=== PATIENT | female | born 1960 | race Caucasian/White ===

== ENCOUNTER 2017-08-08 19:10 | Emergency (ER) | payer SELFPAY ==
[~2017-08-08] VITALS: Ht 170.2 cm; Wt 59.0 kg
[~2017-08-08 19:10] MED LIST: BACI120O TP; DULO20CA30 PO
[2017-08-08] MEDS ORDERED: HYDR-3112 PO (19:28)
[2017-08-08] MEDS ORDERED: HALO0.5T PO (19:28)
[2017-08-08] MEDS ORDERED: DIVA250T25 PO (19:28)
[2017-08-08 20:00] LABS: BASOPHILS # (AUTO) 0.02 K/uL (0.00-0.20); BASOPHILS % (AUTO) 0.3 % (0.0-2.0); EOSINOPHILS # (AUTO) 0.19 K/uL (0.00-0.70); EOSINOPHILS % (AUTO) 2.47 % (1.0-6.0); HEMATOCRIT 39.5 % (36-46); HEMOGLOBIN 13.7 g/dL (12.0-16.0); LYMPHOCYTES % (AUTO) 25.7 % (22.0-44.0); MEAN CORPUSCULAR HEMOGLOBIN 30.3 pg (26.0-34.0); MEAN CORPUSCULAR HGB CONC 34.8 G/dL (31.0-37.0); MEAN CORPUSCULAR VOLUME 87 fL (80-100); MONOCYTES # (AUTO) 0.6 K/uL (0.1-1.0); MONOCYTES % (AUTO) 8.2 % (2.0-9.0); NEUTROPHILS # (AUTO) 4.9 K/uL (1.8-7.7); NEUTROPHILS % (AUTO) 63.4 % (40.0-70.0); PLATELET COUNT (AUTO) 298 K/uL (150-450); RED BLOOD CELL COUNT(AUTO) 4.53 MIL/uL (4.00-5.20); RED CELL DISTRIBUTION WIDTH 13.4 % (11.5-14.5); WHITE BLOOD COUNT (AUTO) 7.8 K/uL (4.5-11.0)
[2017-08-08 20:20] LABS: ANION GAP 8 mmol/L (8-16); CALCIUM, TOTAL 8.3 mg/dL (8.8-10.5); CARBON DIOXIDE 28 mmol/L (22-29); CHLORIDE 105 mmol/L (98-107); CREATININE 0.75 mg/dL (0.60-1.30); GLOMERULAR FILTR. RATE CALC > 60 mL/min (>60); POTASSIUM 3.8 mmol/L (3.5-5.1); SODIUM SERUM 141 mmol/L (136-145); UREA NITROGEN, BLOOD 14 mg/dL (7-18)
[2017-08-08 20:28] LABS: ALANINE AMINOTRANSFERASE 10 U/L (12-78); ALBUMIN 3.2 g/dL (3.4-5.0); ASPARTATE AMINOTRANSFERASE 10 U/L (15-37); BILIRUBIN,TOTAL 0.2 mg/dL (0.1-1.0); TOTAL PROTEIN, SERUM 6.7 g/dL (6.4-8.2)
[2017-08-08] MEDS ORDERED: LORazepam 2 MG TABLET PO ONE (21:15)
[2017-08-08 22:58] VITALS: BP 103/76
== END 2017-08-08 23:02 | disposition home or self-care (01) ==
LOC: EMS 19:12
DX: F32.9 Major depressive disorder, single episode, unspecified (principal); F41.9 Anxiety disorder, unspecified; I10 Essential (primary) hypertension
CPT/HCPCS: 36415; 80053; 80307; 85025; 99284; G0480

== ENCOUNTER 2017-08-10 14:20 | Emergency (ER) | payer SELFPAY ==
[~2017-08-10] VITALS: Ht 170.2 cm; Wt 59.0 kg
[~2017-08-10 14:20] MED LIST changes: -BACI120O TP; +HALO0.5T PO; +HYDR-3112 PO
[2017-08-10 15:39] LABS: BASOPHILS # (AUTO) 0.05 K/uL (0.00-0.20); BASOPHILS % (AUTO) 0.6 % (0.0-2.0); EOSINOPHILS # (AUTO) 0.15 K/uL (0.00-0.70); HEMATOCRIT 39.5 % (36-46); HEMOGLOBIN 13.2 g/dL (12.0-16.0); LYMPHOCYTES # (AUTO) 1.5 K/uL (1.0-4.8); LYMPHOCYTES % (AUTO) 18.3 % (22.0-44.0); MEAN CORPUSCULAR HEMOGLOBIN 29.8 pg (26.0-34.0); MEAN CORPUSCULAR HGB CONC 33.4 G/dL (31.0-37.0); MEAN CORPUSCULAR VOLUME 89 fL (80-100); MONOCYTES # (AUTO) 0.7 K/uL (0.1-1.0); MONOCYTES % (AUTO) 8.2 % (2.0-9.0); NEUTROPHILS # (AUTO) 5.9 K/uL (1.8-7.7); NEUTROPHILS % (AUTO) 71.1 % (40.0-70.0); PLATELET COUNT (AUTO) 282 K/uL (150-450); RED BLOOD CELL COUNT(AUTO) 4.43 MIL/uL (4.00-5.20); RED CELL DISTRIBUTION WIDTH 13.7 % (11.5-14.5); WHITE BLOOD COUNT (AUTO) 8.4 K/uL (4.5-11.0)
[2017-08-10 15:46] LABS: ANION GAP 5 mmol/L (8-16); CALCIUM, TOTAL 8.2 mg/dL (8.8-10.5); CARBON DIOXIDE 31 mmol/L (22-29); CHLORIDE 105 mmol/L (98-107); CREATININE 0.82 mg/dL (0.60-1.30); GLOMERULAR FILTR. RATE CALC > 60 mL/min (>60); POTASSIUM 4.2 mmol/L (3.5-5.1); SODIUM SERUM 141 mmol/L (136-145); UREA NITROGEN, BLOOD 17 mg/dL (7-18)
[2017-08-10 15:52] LABS: ALANINE AMINOTRANSFERASE 12 U/L (12-78); ASPARTATE AMINOTRANSFERASE 12 U/L (15-37); BILIRUBIN,TOTAL 0.2 mg/dL (0.1-1.0); TOTAL PROTEIN, SERUM 6.2 g/dL (6.4-8.2)
[2017-08-10 17:59] VITALS: BP 115/80
== END 2017-08-10 18:09 | disposition home or self-care (01) ==
LOC: EMS 14:21
DX: R42 Dizziness and giddiness (principal); I10 Essential (primary) hypertension; Z88.1 Allergy status to other antibiotic agents
CPT/HCPCS: 36415; 80053; 80307; 85025; 93005; 99285; G0480

== ENCOUNTER 2017-08-13 20:46 | Emergency (ER) | payer SELFPAY ==
[~2017-08-13] VITALS: Ht 170.2 cm; Wt 59.0 kg
[2017-08-13] MEDS ORDERED: LORazepam 2 MG/ML VIAL IVP ONE (21:15)
[2017-08-13] MEDS ORDERED: BENZTROPINE MESYLATE 1 MG/ML 2 ML VIAL IVP ONE (21:15)
[2017-08-13 21:17] LABS: GLUCOSE,POINT OF CARE 121 MG/DL (70-110)
[2017-08-13 21:27] LABS: BASOPHILS % (AUTO) 0.5 % (0.0-2.0); HEMATOCRIT 41.9 % (36-46); HEMOGLOBIN 14.1 g/dL (12.0-16.0); LYMPHOCYTES # (AUTO) 2.1 K/uL (1.0-4.8); LYMPHOCYTES % (AUTO) 25.4 % (22.0-44.0); MEAN CORPUSCULAR HGB CONC 33.7 G/dL (31.0-37.0); MEAN CORPUSCULAR VOLUME 89 fL (80-100); MONOCYTES # (AUTO) 0.8 K/uL (0.1-1.0); MONOCYTES % (AUTO) 9.3 % (2.0-9.0); NEUTROPHILS # (AUTO) 5.1 K/uL (1.8-7.7); NEUTROPHILS % (AUTO) 60.8 % (40.0-70.0); PLATELET COUNT (AUTO) 358 K/uL (150-450); RED BLOOD CELL COUNT(AUTO) 4.71 MIL/uL (4.00-5.20); RED CELL DISTRIBUTION WIDTH 13.6 % (11.5-14.5); WHITE BLOOD COUNT (AUTO) 8.4 K/uL (4.5-11.0)
[2017-08-13 21:35] LABS: ANION GAP 5 mmol/L (8-16); CALCIUM, TOTAL 8.9 mg/dL (8.8-10.5); CARBON DIOXIDE 32 mmol/L (22-29); CHLORIDE 104 mmol/L (98-107); CREATININE 0.91 mg/dL (0.60-1.30); GLOMERULAR FILTR. RATE CALC > 60 mL/min (>60); POTASSIUM 4.7 mmol/L (3.5-5.1); SODIUM SERUM 141 mmol/L (136-145); UREA NITROGEN, BLOOD 21 mg/dL (7-18)
[2017-08-13 21:40] LABS: ALANINE AMINOTRANSFERASE 11 U/L (12-78); ALBUMIN 3.4 g/dL (3.4-5.0); ASPARTATE AMINOTRANSFERASE 6 U/L (15-37); BILIRUBIN,TOTAL 0.2 mg/dL (0.1-1.0); TOTAL PROTEIN, SERUM 7.1 g/dL (6.4-8.2)
[2017-08-13 22:27] VITALS: BP 93/71
== END 2017-08-13 22:52 | disposition home or self-care (01) ==
LOC: EMS 20:47
DX: G25.71 Drug induced akathisia (principal); T43.4X5A Adverse effect of butyrophenone and thiothixene neuroleptics, initial encounter; I10 Essential (primary) hypertension; Z88.1 Allergy status to other antibiotic agents; Y92.89 Other specified places as the place of occurrence of the external cause
CPT/HCPCS: 36415; 80053; 82948; 82962; 84484; 85025; 93005; 96374; 96375; 99285; G0480; J0515; J2060

== ENCOUNTER 2018-04-23 16:20 | Inpatient (IN) | payer MEDICAID ==
[~2018-04-23] VITALS: Ht 170.2 cm; Wt 57.2 kg
[2018-04-23 17:03] LABS: BASOPHILS % (AUTO) 0.4 % (0.0-2.0); EOSINOPHILS % (AUTO) 0.5 % (1.0-6.0); HEMOGLOBIN 14.8 g/dL (12.0-16.0); LYMPHOCYTES # (AUTO) 0.8 K/uL (1.0-4.8); LYMPHOCYTES % (AUTO) 8.5 % (22.0-44.0); MEAN CORPUSCULAR HEMOGLOBIN 30.1 pg (26.0-34.0); MEAN CORPUSCULAR HGB CONC 36.2 G/dL (31.0-37.0); MEAN CORPUSCULAR VOLUME 83 fL (80-100); MONOCYTES # (AUTO) 0.7 K/uL (0.1-1.0); NEUTROPHILS # (AUTO) 7.3 K/uL (1.8-7.7); NEUTROPHILS % (AUTO) 82.6 % (40.0-70.0); PLATELET COUNT (AUTO) 346 K/uL (150-450); RED BLOOD CELL COUNT(AUTO) 4.93 MIL/uL (4.00-5.20); RED CELL DISTRIBUTION WIDTH 13.4 % (11.5-14.5)
[2018-04-23 17:24] LABS: ANION GAP 8 mmol/L (8-16); CALCIUM, TOTAL 9.2 mg/dL (8.8-10.5); CARBON DIOXIDE 30 mmol/L (22-29); CHLORIDE 102 mmol/L (98-107); CREATININE 1.44 mg/dL (0.60-1.30); GLOMERULAR FILTR. RATE CALC 38 mL/min (>60); GLUCOSE,RANDOM 243 mg/dL (70-110); POTASSIUM 3.8 mmol/L (3.5-5.1); SODIUM SERUM 140 mmol/L (136-145); UREA NITROGEN, BLOOD 17 mg/dL (7-18)
[2018-04-23 17:30] LABS: ALANINE AMINOTRANSFERASE 26 U/L (12-78); ALBUMIN 3.8 g/dL (3.4-5.0); ALKALINE PHOSPHATASE 85 U/L (46-116); ASPARTATE AMINOTRANSFERASE 17 U/L (15-37); BILIRUBIN,TOTAL 0.5 mg/dL (0.1-1.0); TOTAL PROTEIN, SERUM 6.9 g/dL (6.4-8.2)
[2018-04-23 17:45] LABS: AMPHET/METH SCREEN,URINE NEGATIVE (NEGATIVE); BARBITURATE SCREEN, URINE NEGATIVE (NEGATIVE); BENZODIAZEPINES SCREEN,URINE NEGATIVE (NEGATIVE); CANNABINOID SCREEN,URINE NEGATIVE (NEGATIVE); COCAINE SCREEN,URINE NEGATIVE (NEGATIVE); METHADONE SCREEN, URINE NEGATIVE (NEGATIVE); OPIATE SCREEN,URINE NEGATIVE (NEGATIVE)
[2018-04-23 18:05] LABS: PHENCYCLIDINE SCREEN,URINE NEGATIVE (NEGATIVE)
[2018-04-23] MEDS ORDERED: LORazepam 1 MG TABLET PO ONE (19:15)
[2018-04-23] MEDS ORDERED: LORazepam 2 MG TABLET PO PRN (19:45)
[2018-04-23] MEDS ORDERED: ZOLPIDEM TARTRATE 10 MG TABLET PO PRN (19:45)
[2018-04-23] MEDS ORDERED: HALOPERIDOL 5 MG TABLET PO PRN (19:45)
[2018-04-23 21:06] VITALS: BP 108/83
[2018-04-23] MEDS ORDERED: DOCUSATE SODIUM 100 MG CAPSULE PO PRN (21:30)
[2018-04-23] MEDS ORDERED: PETROLATUM,WHITE 71 GM JELLY TP PRN (21:30)
[2018-04-24] MEDS: HydrOXYzine PAMOATE 25 MG CAPSULE PO SCH (17:00)
[2018-04-24] MEDS: HALOPERIDOL 5 MG TABLET PO SCH (17:00)
[2018-04-25 03:47] VITALS: BP 120/84
[2018-04-25] MEDS: HALOPERIDOL 5 MG TABLET PO SCH ×3 (09:00→17:00)
[2018-04-25] MEDS: HydrOXYzine PAMOATE 25 MG CAPSULE PO SCH ×4 (09:00→17:00)
[2018-04-25] MEDS: DULoxetine HCL 20 MG CAPSULE PO SCH ×2 (09:00→10:31)
[2018-04-26] MEDS: HydrOXYzine PAMOATE 25 MG CAPSULE PO SCH ×3 (09:00→17:00)
[2018-04-26] MEDS: HALOPERIDOL 5 MG TABLET PO SCH ×2 (09:00→17:00)
[2018-04-26] MEDS: DULoxetine HCL 20 MG CAPSULE PO SCH (09:00)
[2018-04-27] MEDS: HydrOXYzine PAMOATE 25 MG CAPSULE PO SCH ×3 (09:00→17:00)
[2018-04-27] MEDS: HALOPERIDOL 5 MG TABLET PO SCH ×2 (09:00→17:00)
[2018-04-27] MEDS: DULoxetine HCL 20 MG CAPSULE PO SCH (09:00)
[2018-04-28 08:05] VITALS: BP 109/63
[2018-04-28] MEDS: HydrOXYzine PAMOATE 25 MG CAPSULE PO SCH ×3 (09:00→17:00)
[2018-04-28] MEDS: HALOPERIDOL 5 MG TABLET PO SCH ×2 (09:00→17:00)
[2018-04-28] MEDS: DULoxetine HCL 20 MG CAPSULE PO SCH (09:00)
[2018-04-29] MEDS: DULoxetine HCL 20 MG CAPSULE PO SCH ×2 (09:00→09:26)
[2018-04-29] MEDS: HydrOXYzine PAMOATE 25 MG CAPSULE PO SCH ×4 (09:00→17:00)
[2018-04-29] MEDS: HALOPERIDOL 5 MG TABLET PO SCH ×3 (09:00→17:00)
[2018-04-30 01:56] VITALS: BP 115/85
[2018-04-30] MEDS: HALOPERIDOL 5 MG TABLET PO SCH ×2 (09:00→16:48)
[2018-04-30] MEDS: HydrOXYzine PAMOATE 25 MG CAPSULE PO SCH ×3 (09:00→16:48)
[2018-04-30] MEDS: DULoxetine HCL 20 MG CAPSULE PO SCH (09:00)
[2018-04-30 17:16] VITALS: BP 121/82
[2018-05-01] MEDS: HydrOXYzine PAMOATE 25 MG CAPSULE PO SCH ×3 (09:00→16:31)
[2018-05-01] MEDS: HALOPERIDOL 5 MG TABLET PO SCH ×2 (09:00→16:31)
[2018-05-01] MEDS: DULoxetine HCL 20 MG CAPSULE PO SCH (09:00)
[2018-05-02] MEDS: HydrOXYzine PAMOATE 25 MG CAPSULE PO SCH ×3 (09:00→17:00)
[2018-05-02] MEDS: HALOPERIDOL 5 MG TABLET PO SCH ×2 (09:00→17:00)
[2018-05-02] MEDS: DULoxetine HCL 20 MG CAPSULE PO SCH (09:00)
[2018-05-02 17:14] VITALS: BP 102/60
[2018-05-02] MEDS: ACETAMINOPHEN 325 MG TABLET PO PRN (23:40)
[2018-05-03] MEDS: IBUPROFEN 400 MG TABLET PO PRN (03:06)
[2018-05-03] MEDS: HALOPERIDOL 5 MG TABLET PO SCH ×2 (09:00→16:52)
[2018-05-03] MEDS: HydrOXYzine PAMOATE 25 MG CAPSULE PO SCH ×3 (09:00→16:53)
[2018-05-03] MEDS: DULoxetine HCL 20 MG CAPSULE PO SCH (09:00)
[2018-05-04 00:13] VITALS: BP 95/66
[2018-05-04] MEDS: ACETAMINOPHEN 325 MG TABLET PO PRN (00:53)
[2018-05-04 02:45] VITALS: BP 101/64
[2018-05-04] MEDS: IBUPROFEN 400 MG TABLET PO PRN (02:47)
[2018-05-04 05:44] LABS: GLUCOMETER DEV NAME(LOC) 3EI B; GLUCOSE,POINT OF CARE 73 MG/DL (70-110)
[2018-05-04] MEDS: HydrOXYzine PAMOATE 25 MG CAPSULE PO SCH ×2 (09:00→12:38)
[2018-05-04] MEDS: HALOPERIDOL 5 MG TABLET PO SCH (09:00)
[2018-05-04] MEDS: DULoxetine HCL 20 MG CAPSULE PO SCH (09:00)
== END 2018-05-04 16:00 | disposition home or self-care (01) | DRG 750 ==
LOC: EMS 16:21 → 3EI 19:30
PROVIDERS: ADMIT Psychiatry & Neurology Child & Adolescent Psychiatry; ATTEND Psychiatry & Neurology Child & Adolescent Psychiatry
DX: F25.1 Schizoaffective disorder, depressive type (principal); R45.851 Suicidal ideations; R45.850 Homicidal ideations; I12.9 Hypertensive chronic kidney disease with stage 1 through stage 4 chronic kidney disease, or unspecified chronic kidney disease; F31.9 Bipolar disorder, unspecified; F41.9 Anxiety disorder, unspecified; R73.9 Hyperglycemia, unspecified; N18.9 Chronic kidney disease, unspecified; Z87.81 Personal history of (healed) traumatic fracture; Z79.899 Other long term (current) drug therapy; Z88.1 Allergy status to other antibiotic agents
CPT/HCPCS: 99285; G0480